=== PATIENT | female | born 1940 | race Caucasian/White ===

== ENCOUNTER 2023-04-12 12:39 | Inpatient (IN) | payer OTHER ==
[2023-04-12] MEDS ORDERED: VANCOMYCIN 1,000 MG in DEXTROSE 5%-WATER - 250 ML IVPB ONE (12:57)
[2023-04-12] MEDS ORDERED: PIPERACILLIN/TAZOB 4.5 GM 4.5 GM in DEXTROSE 5%-WATER 100 ML IVPB ONE (12:58)
[2023-04-12] MEDS ORDERED: SODIUM CHLORIDE 1,000 ML IV STA (13:00)
[2023-04-12] MEDS ORDERED: PIPERACILLIN/TAZOB 4.5 GM 4.5 GM/100 ML BAG IVPB ONE (13:12)
[2023-04-12] MEDS ORDERED: VANCOMYCIN 1 GRAM (PRE-DOCKED) 1,000 MG/250 ML BAG IVPB ONE ×2 (13:13→14:09)
[2023-04-12 13:29] VITALS: BMI 22.1
[2023-04-12 13:53] LABS: VENOUS O2 SATURATION 90.1 % (70-80); VENOUS PCO2 47.5 mmHg (38-52); VENOUS PH 7.355 (7.310-7.410)
[2023-04-12 14:05] LABS: BASO % 0.4 % (0-2.0); EOS % 0.1 % (0-4.5); HEMATOCRIT 35.5 % (32.4-45.2); HEMOGLOBIN 11.4 GM/dL (10.7-15.3); LYMPH % 8.3 % (8-40); MCH 30.7 pg (25.7-33.7); MCHC 32.2 g/dl (32.0-36.0); MEAN CELL VOLUME 95.5 fl (80-96); MEAN PLT VOLUME 8.4 fl (7.5-11.1); MONO % 8.9 % (3.8-10.2); NEUT % 82.3 % (42.8-82.8); PLATELET COUNT 420 10^3/uL (134-434); RBC 3.72 M/mm3 (3.60-5.2); RDW 16.3 % (11.6-15.6); WHITE BLOOD COUNT 11.7 K/mm3 (4.0-10.0)
[2023-04-12 14:10] LABS: EPI CELLS 7 /uL (0-25.1); HYALINE CASTS 3 /uL (0-3.1); URINE APPEARANCE CLOUDY; URINE BACTERIA >9,000 /uL (0-1359); URINE BILIRUBIN NEGATIVE (NEGATIVE); URINE COLOR DK YELLOW; URINE GLUCOSE (UA) NEGATIVE (NEGATIVE); URINE KETONE TRACE (NEGATIVE); URINE LEUK ESTERASE 2+ (NEGATIVE); URINE NITRITE NEGATIVE (NEGATIVE); URINE PROTEIN 2+ (NEGATIVE); URINE UROBILINOGEN 0.2 mg/dL (0.2-1.0); URINE WBC 352 /uL (0-25.8)
[2023-04-12 14:14] LABS: INR 1.07 (0.83-1.09); PROTHROMBIN TIME (PATIENT) 12.4 SEC (9.7-13.0)
[2023-04-12 14:15] LABS: CHLORIDE 110 mmol/L (98-107); SODIUM 141 mmol/L (136-145)
[2023-04-12 14:16] LABS: ACTIVATED PTT 25.9 SECONDS (25.2-36.5)
[2023-04-12 14:17] LABS: ALBUMIN 2.2 g/dl (3.4-5.0); CO2 24 mmol/L (21-32); GLUCOSE,RANDOM 155 mg/dL (74-106)
[2023-04-12 14:19] LABS: PHOSPHOROUS 3.3 mg/dL (2.5-4.9)
[2023-04-12 14:20] LABS: SGOT/AST 115 U/L (15-37); SGPT/ALT 118 U/L (13-61)
[2023-04-12 14:22] LABS: BILIRUBIN,TOTAL 0.5 mg/dL (0.2-1); TOT PROT 6.6 g/dl (6.4-8.2)
[2023-04-12 14:23] LABS: ALK PHOS 287 U/L (45-117); MAGNESIUM 6.2 mg/dL (1.8-2.4)
[2023-04-12 14:24] LABS: ANION GAP 7 mmol/L (4-13); BLOOD UREA NITROGEN 157.6 mg/dL (7-18); CALCIUM 9.7 mg/dL (8.5-10.1); CREATININE 4.9 mg/dL (0.55-1.3); POTASSIUM 8.1 mmol/L (3.5-5.1)
[2023-04-12 14:29] LABS: URINE RBC 194 /uL (0-23.9); YEAST NONE SEEN (NEGATIVE)
[2023-04-12] MEDS ORDERED: DEXTROSE 5%-0.45% SALINE 1,000 ML IV SCH (15:30)
[2023-04-12 15:34] LABS: CHLORIDE 112 mmol/L (98-107); SODIUM 141 mmol/L (136-145)
[2023-04-12 15:36] LABS: CALCIUM 8.4 mg/dL (8.5-10.1); CO2 23 mmol/L (21-32)
[2023-04-12 15:37] LABS: ALBUMIN 1.8 g/dl (3.4-5.0); GLUCOSE,RANDOM 207 mg/dL (74-106)
[2023-04-12 15:39] LABS: SGPT/ALT 102 U/L (13-61)
[2023-04-12 15:40] LABS: CREATININE 4.7 mg/dL (0.55-1.3); SGOT/AST 116 U/L (15-37)
[2023-04-12 15:41] LABS: BILIRUBIN,TOTAL 0.6 mg/dL (0.2-1); TOT PROT 5.8 g/dl (6.4-8.2)
[2023-04-12 15:46] LABS: ALK PHOS 247 U/L (45-117); ANION GAP 6 mmol/L (4-13); BLOOD UREA NITROGEN 147.5 mg/dL (7-18); POTASSIUM 7.7 mmol/L (3.5-5.1)
[2023-04-12] MEDS: DEXTROSE 5%-0.45% SALINE 1,000 ML IV SCH (15:59)
[2023-04-12 17:31] LABS: CHLORIDE 113 mmol/L (98-107); SODIUM 143 mmol/L (136-145)
[2023-04-12 17:34] LABS: CALCIUM 9.2 mg/dL (8.5-10.1); CO2 23 mmol/L (21-32); GLUCOSE,RANDOM 234 mg/dL (74-106)
[2023-04-12 17:37] LABS: CREATININE 4.9 mg/dL (0.55-1.3); SGOT/AST 113 U/L (15-37); SGPT/ALT 108 U/L (13-61)
[2023-04-12 17:39] LABS: BILIRUBIN,TOTAL 0.5 mg/dL (0.2-1)
[2023-04-12 17:40] LABS: ALK PHOS 261 U/L (45-117); ANION GAP 8 mmol/L (4-13); BLOOD UREA NITROGEN 155.7 mg/dL (7-18); POTASSIUM 7.1 mmol/L (3.5-5.1)
[2023-04-12] MEDS ORDERED: DEXTROSE 50%-WATER - 25 GM/50 ML VIAL IVPUSH ONE (17:43)
[2023-04-12] MEDS ORDERED: INSULIN REGULAR HUMAN 100 UNITS/ML *VIAL IVPUSH ONE (17:43)
[2023-04-12] MEDS ORDERED: SODIUM ZIRCONIUM CYCLOSILICATE (LOKELMA) 5 GM PACKET PO ONE (17:43)
[2023-04-12] MEDS ORDERED: CALCIUM GLUCONATE 10% - 1,000 MG/10 ML VIAL IVPUSH ONE (17:43)
[2023-04-12] MEDS ORDERED: ALBUTEROL SO4 0.083% IH SOL 2.5 MG/3 ML VIAL.NEB. NEB ONE ×2 (17:48→18:36)
[2023-04-12] MEDS ORDERED: ACETAMINOPHEN 1000 MG/100 ML BAG IVPB ONE (18:28)
[2023-04-12] MEDS ORDERED: ACETAMINOPHEN INJECTION 100 ML IVPB ONE (18:30)
[2023-04-12] MEDS ORDERED: CALCIUM GLUCONATE 10% - 1,000 MG/10 ML VIAL ONE (18:36)
[2023-04-12] MEDS ORDERED: DEXTROSE 50%-WATER 25 GM/50 ML DISP.SYRIN ONE (18:36)
[2023-04-12] MEDS ORDERED: INSULIN (NOVOLOG) ASPART 100 UNITS/ML 10ML VIAL ONE (18:37)
[2023-04-12] MEDS ORDERED: PIPERACILLIN/TAZOB 4.5 GM 4.5 GM in DEXTROSE 5%-WATER 100 ML IVPB SCH (21:00)
[2023-04-13] MEDS: PIPERACILLIN/TAZOB 2.25 GM 2.25 GM in DEXTROSE 5%-WATER - 50 ML IVPB SCH ×4 (00:22→18:14)
[2023-04-13] MEDS: HEPARIN NA (PORCINE) 5,000 UNITS/ML 1ML VIAL SQ SCH ×3 (00:22→22:36)
[2023-04-13 07:32] LABS: BASO % 0.5 % (0-2.0); EOS % 0.6 % (0-4.5); HEMATOCRIT 28.1 % (32.4-45.2); HEMOGLOBIN 8.8 GM/dL (10.7-15.3); LYMPH % 8.6 % (8-40); MCH 30.1 pg (25.7-33.7); MCHC 31.3 g/dl (32.0-36.0); MEAN CELL VOLUME 96.3 fl (80-96); MEAN PLT VOLUME 8.1 fl (7.5-11.1); MONO % 8.9 % (3.8-10.2); NEUT % 81.4 % (42.8-82.8); PLATELET COUNT 299 10^3/uL (134-434); RBC 2.92 M/mm3 (3.60-5.2); RDW 16.2 % (11.6-15.6); WHITE BLOOD COUNT 9.7 K/mm3 (4.0-10.0)
[2023-04-13] MEDS ORDERED: SODIUM CHLORIDE 0.45% 1,000 ML IV SCH (11:30)
[2023-04-13 11:55] LABS: BASO % 0.4 % (0-2.0); EOS % 0.9 % (0-4.5); HEMATOCRIT 28.7 % (32.4-45.2); HEMOGLOBIN 8.7 GM/dL (10.7-15.3); LYMPH % 8.4 % (8-40); MCH 29.6 pg (25.7-33.7); MCHC 30.3 g/dl (32.0-36.0); MEAN CELL VOLUME 97.6 fl (80-96); MONO % 6.2 % (3.8-10.2); NEUT % 84.1 % (42.8-82.8); PLATELET COUNT 273 10^3/uL (134-434); RBC 2.94 M/mm3 (3.60-5.2); WHITE BLOOD COUNT 9.6 K/mm3 (4.0-10.0)
[2023-04-13 12:19] LABS: CHLORIDE 113 mmol/L (98-107); POTASSIUM 5.7 mmol/L (3.5-5.1); SODIUM 144 mmol/L (136-145)
[2023-04-13 12:21] LABS: ANION GAP 10 mmol/L (4-13); CALCIUM 8.1 mg/dL (8.5-10.1); CO2 21 mmol/L (21-32)
[2023-04-13 12:22] LABS: ALBUMIN 1.7 g/dl (3.4-5.0); GLUCOSE,RANDOM 181 mg/dL (74-106)
[2023-04-13 12:25] LABS: CREATININE 4.3 mg/dL (0.55-1.3); SGOT/AST 74 U/L (15-37); SGPT/ALT 80 U/L (13-61)
[2023-04-13 12:26] LABS: BILIRUBIN,TOTAL 0.7 mg/dL (0.2-1); TOT PROT 5.4 g/dl (6.4-8.2)
[2023-04-13 12:27] LABS: ALK PHOS 232 U/L (45-117)
[2023-04-13 12:30] LABS: BLOOD UREA NITROGEN 135.8 mg/dL (7-18)
[2023-04-13] MEDS: INSULIN SLIDING SCALE (NOVOLOG) 1 VIAL SQ SCH ×3 (12:30→23:48)
[2023-04-13 15:03] LABS: ARTERIAL BLD GAS O2 SATURATION 94.7 % (95-98); ARTERIAL BLOOD GAS BASE EXCESS -3.8 mmol/L (-2-2); ARTERIAL BLOOD GAS pH 7.391 (7.350-7.450)
[2023-04-13 15:18] LABS: ALLENS TEST POSITIVE
[2023-04-13] MEDS: DEXTROSE 5%-0.45% SALINE 1,000 ML IV SCH (17:05)
[2023-04-13] MEDS ORDERED: CALCIUM (OYSTER SHELL) 500 MG TABLET (FP) PO SCH (22:00)
[2023-04-14] MEDS: PIPERACILLIN/TAZOB 2.25 GM 2.25 GM in DEXTROSE 5%-WATER - 50 ML IVPB SCH ×2 (01:18→12:34)
[2023-04-14] MEDS: INSULIN SLIDING SCALE (NOVOLOG) 1 VIAL SQ SCH ×4 (06:56→22:18)
[2023-04-14 07:50] LABS: HEMATOCRIT 26.2 % (32.4-45.2); HEMOGLOBIN 8.2 GM/dL (10.7-15.3); MCH 29.9 pg (25.7-33.7); MCHC 31.1 g/dl (32.0-36.0); MEAN PLT VOLUME 8.1 fl (7.5-11.1); PLATELET COUNT 269 10^3/uL (134-434); RBC 2.73 M/mm3 (3.60-5.2); RDW 15.8 % (11.6-15.6)
[2023-04-14 08:32] LABS: CHLORIDE 113 mmol/L (98-107); POTASSIUM 4.7 mmol/L (3.5-5.1); SODIUM 143 mmol/L (136-145)
[2023-04-14 08:36] LABS: ANION GAP 8 mmol/L (4-13); CALCIUM 7.4 mg/dL (8.5-10.1); CO2 22 mmol/L (21-32); GLUCOSE,RANDOM 95 mg/dL (74-106)
[2023-04-14 08:37] LABS: ALBUMIN 1.8 g/dl (3.4-5.0); MAGNESIUM 4.3 mg/dL (1.8-2.4)
[2023-04-14 08:39] LABS: SGOT/AST 113 U/L (15-37); SGPT/ALT 89 U/L (13-61)
[2023-04-14 08:40] LABS: PHOSPHOROUS 3.6 mg/dL (2.5-4.9)
[2023-04-14 08:41] LABS: BILIRUBIN,TOTAL 0.4 mg/dL (0.2-1); TOT PROT 5.5 g/dl (6.4-8.2)
[2023-04-14 08:42] LABS: ALK PHOS 246 U/L (45-117)
[2023-04-14 09:01] LABS: BLOOD UREA NITROGEN 115.8 mg/dL (7-18)
[2023-04-14] MEDS ORDERED: PANTOPRAZOLE 40 MG TABLET PO SCH (10:00)
[2023-04-14] MEDS ORDERED: CYANOCOBALAMIN 1,000 MCG TABLET (FP) PO SCH (10:00)
[2023-04-14] MEDS: DEXTROSE 5%-0.45% SALINE 1,000 ML IV SCH ×3 (12:00→21:32)
[2023-04-14] MEDS: HEPARIN NA (PORCINE) 5,000 UNITS/ML 1ML VIAL SQ SCH ×2 (12:33→21:29)
[2023-04-14] MEDS: PANTOPRAZOLE SODIUM 40 MG VIAL IVPUSH SCH (13:45)
[2023-04-15] MEDS: DEXTROSE 5%-0.45% SALINE 1,000 ML IV SCH (06:21)
[2023-04-15] MEDS: INSULIN SLIDING SCALE (NOVOLOG) 1 VIAL SQ SCH ×4 (06:31→21:36)
[2023-04-15 07:55] LABS: BASO % 0.5 % (0-2.0); EOS % 2.6 % (0-4.5); HEMATOCRIT 26.2 % (32.4-45.2); HEMOGLOBIN 8.2 GM/dL (10.7-15.3); MCH 29.9 pg (25.7-33.7); MCHC 31.5 g/dl (32.0-36.0); MEAN PLT VOLUME 8.1 fl (7.5-11.1); MONO % 5.8 % (3.8-10.2); NEUT % 82.1 % (42.8-82.8); PLATELET COUNT 243 10^3/uL (134-434); RBC 2.76 M/mm3 (3.60-5.2); RDW 15.6 % (11.6-15.6); WHITE BLOOD COUNT 12.3 K/mm3 (4.0-10.0)
[2023-04-15 08:12] LABS: POTASSIUM 3.6 mmol/L (3.5-5.1)
[2023-04-15 08:30] LABS: CALCIUM 7.4 mg/dL (8.5-10.1)
[2023-04-15 08:31] LABS: ALBUMIN 1.8 g/dl (3.4-5.0); MAGNESIUM 3.5 mg/dL (1.8-2.4)
[2023-04-15 08:34] LABS: CREATININE 3.2 mg/dL (0.55-1.3); PHOSPHOROUS 2.7 mg/dL (2.5-4.9)
[2023-04-15 08:35] LABS: BILIRUBIN,TOTAL 0.4 mg/dL (0.2-1); TOT PROT 5.3 g/dl (6.4-8.2)
[2023-04-15 08:36] LABS: BLOOD UREA NITROGEN 89.3 mg/dL (7-18)
[2023-04-15] MEDS: PANTOPRAZOLE SODIUM 40 MG VIAL IVPUSH SCH (09:42)
[2023-04-15] MEDS: HEPARIN NA (PORCINE) 5,000 UNITS/ML 1ML VIAL SQ SCH ×2 (09:42→21:34)
[2023-04-15] MEDS: ERTAPENEM SODIUM 0.5 GM in SODIUM CHLORIDE 50 ML IVPB SCH (09:58)
[2023-04-15] MEDS ORDERED: SODIUM CHLORIDE 0.45% 1,000 ML IV SCH (11:00)
[2023-04-15] MEDS ORDERED: AMINO ACIDS 4.25%/D5W 1,000 ML IV SCH (11:00)
[2023-04-15] MEDS: AMINO ACIDS 4.25%/D5W 1,000 ML IV SCH (11:36)
[2023-04-15] MEDS: VANCOMYCIN ORAL SOLUTION 125 MG/2.5 ML PO SCH (17:30)
[2023-04-15] MEDS: SODIUM CHLORIDE 0.45% 1,000 ML IV SCH (18:37)
[2023-04-15] MEDS ORDERED: INSULIN (NOVOLOG) ASPART 100 UNITS/ML 10ML VIAL ONE (20:48)
[2023-04-16] MEDS: VANCOMYCIN ORAL SOLUTION 125 MG/2.5 ML PO SCH ×5 (00:25→23:52)
[2023-04-16] MEDS: AMINO ACIDS 4.25%/D5W 1,000 ML IV SCH ×2 (00:26→11:45)
[2023-04-16] MEDS ORDERED: ACETAMINOPHEN 1000 MG/100 ML BAG IVPB ONE ×2 (06:00→21:43)
[2023-04-16] MEDS: INSULIN SLIDING SCALE (NOVOLOG) 1 VIAL SQ SCH ×4 (06:31→22:35)
[2023-04-16] MEDS: HEPARIN NA (PORCINE) 5,000 UNITS/ML 1ML VIAL SQ SCH ×2 (09:47→22:35)
[2023-04-16] MEDS: PANTOPRAZOLE SODIUM 40 MG VIAL IVPUSH SCH (09:47)
[2023-04-16] MEDS: ERTAPENEM SODIUM 0.5 GM in SODIUM CHLORIDE 50 ML IVPB SCH (09:48)
[2023-04-16 10:32] LABS: EPI CELLS 13 /uL (0-25.1); HYALINE CASTS 2 /uL (0-3.1); PH,URINE 5.5 (5.0-8.0); URINE APPEARANCE CLOUDY; URINE BACTERIA 4 /uL (0-1359); URINE BILIRUBIN NEGATIVE (NEGATIVE); URINE COLOR YELLOW; URINE GLUCOSE (UA) NEGATIVE (NEGATIVE); URINE KETONE NEGATIVE (NEGATIVE); URINE LEUK ESTERASE TRACE (NEGATIVE); URINE NITRITE NEGATIVE (NEGATIVE); URINE PROTEIN 1+ (NEGATIVE); URINE UROBILINOGEN 0.2 mg/dL (0.2-1.0); URINE WBC 141 /uL (0-25.8)
[2023-04-16 10:51] LABS: URINE RBC 117 /uL (0-23.9)
[2023-04-16 10:52] LABS: YEAST MANY (NEGATIVE)
[2023-04-16] MEDS: SODIUM CHLORIDE 0.45% 1,000 ML IV SCH (10:52)
[2023-04-16 11:22] LABS: HEMATOCRIT 24.4 % (32.4-45.2); HEMOGLOBIN 7.8 GM/dL (10.7-15.3); MCH 30.1 pg (25.7-33.7); MCHC 31.8 g/dl (32.0-36.0); MEAN CELL VOLUME 94.7 fl (80-96); MEAN PLT VOLUME 7.7 fl (7.5-11.1); PLATELET COUNT 253 10^3/uL (134-434); RBC 2.57 M/mm3 (3.60-5.2); RDW 15.2 % (11.6-15.6); WHITE BLOOD COUNT 10.4 K/mm3 (4.0-10.0)
[2023-04-16 12:02] LABS: ALBUMIN 1.7 g/dl (3.4-5.0); ALK PHOS 183 U/L (45-117); ANION GAP 9 mmol/L (4-13); BILIRUBIN,TOTAL 0.3 mg/dL (0.2-1); BLOOD UREA NITROGEN 72.6 mg/dL (7-18); CALCIUM 7.4 mg/dL (8.5-10.1); CHLORIDE 115 mmol/L (98-107); CO2 20 mmol/L (21-32); CREATININE 2.3 mg/dL (0.55-1.3); GLUCOSE,RANDOM 119 mg/dL (74-106); MAGNESIUM 2.7 mg/dL (1.8-2.4); POTASSIUM 2.9 mmol/L (3.5-5.1); SGOT/AST 29 U/L (15-37); SGPT/ALT 43 U/L (13-61); SODIUM 144 mmol/L (136-145); TOT PROT 5.2 g/dl (6.4-8.2)
[2023-04-16] MEDS ORDERED: POTASSIUM CHLORIDE ORAL LIQUID 20 MEQ/15 ML PO ONE (13:18)
[2023-04-16] MEDS: KCL 10 MEQ IVPB 10 MEQ/100 ML INFUS.BAG IVPB SCH ×3 (14:11→17:08)
[2023-04-16] MEDS ORDERED: SODIUM CHLORIDE 0.45% 1,000 ML with POTASSIUM CHLORIDE 40 MEQ IV SCH (18:07)
[2023-04-16] MEDS ORDERED: POTASSIUM CHLORIDE 40 MEQ in SODIUM CHLORIDE 0.45% 1,000 ML IV SCH (19:38)
[2023-04-17] MEDS: AMINO ACIDS 4.25%/D5W 1,000 ML IV SCH ×2 (03:37→13:25)
[2023-04-17] MEDS ORDERED: AMINO ACIDS 4.25%/D5W 1,000 ML IV SCH (04:10)
[2023-04-17] MEDS ORDERED: LACTATED RINGERS SOLUTION 1,000 ML/1,000 ML INFUS.BAG IV ONE (04:11)
[2023-04-17] MEDS ORDERED: POTASSIUM CHLORIDE 40 MEQ in SODIUM CHLORIDE 0.45% 1,000 ML IV SCH (04:12)
[2023-04-17] MEDS: VANCOMYCIN ORAL SOLUTION 125 MG/2.5 ML PO SCH ×3 (05:38→17:34)
[2023-04-17] MEDS: INSULIN SLIDING SCALE (NOVOLOG) 1 VIAL SQ SCH ×4 (06:16→22:00)
[2023-04-17 07:36] LABS: HEMATOCRIT 23.1 % (32.4-45.2); HEMOGLOBIN 7.1 GM/dL (10.7-15.3); MCH 29.3 pg (25.7-33.7); MCHC 30.5 g/dl (32.0-36.0); MEAN CELL VOLUME 95.9 fl (80-96); MEAN PLT VOLUME 7.8 fl (7.5-11.1); PLATELET COUNT 258 10^3/uL (134-434); RBC 2.41 M/mm3 (3.60-5.2); RDW 15.3 % (11.6-15.6); WHITE BLOOD COUNT 13.8 K/mm3 (4.0-10.0)
[2023-04-17 08:04] LABS: POTASSIUM 3.7 mmol/L (3.5-5.1)
[2023-04-17 08:06] LABS: CALCIUM 7.1 mg/dL (8.5-10.1)
[2023-04-17 08:07] LABS: ALBUMIN 1.6 g/dl (3.4-5.0); BLOOD UREA NITROGEN 73.2 mg/dL (7-18)
[2023-04-17 08:10] LABS: CREATININE 2.1 mg/dL (0.55-1.3)
[2023-04-17 08:11] LABS: TOT PROT 4.9 g/dl (6.4-8.2)
[2023-04-17 08:12] LABS: BILIRUBIN,TOTAL 0.2 mg/dL (0.2-1)
[2023-04-17] MEDS: ERTAPENEM SODIUM 0.5 GM in SODIUM CHLORIDE 50 ML IVPB SCH (11:07)
[2023-04-17] MEDS: PANTOPRAZOLE SODIUM 40 MG VIAL IVPUSH SCH (11:07)
[2023-04-17] MEDS: HEPARIN NA (PORCINE) 5,000 UNITS/ML 1ML VIAL SQ SCH (11:07)
[2023-04-17 11:13] LABS: ANISOCYTOSIS 0; HELMET CELLS 0; HOWELL-JOLLY BODIES 0; MACROCYTOSIS 0; OVALOCYTE 0; ROULEAU 0; SICKELED CELLS 0; TARGET CELLS 0; TEAR DROP CELLS 0; TOXIC GRANULATION 0
[2023-04-17] MEDS ORDERED: FUROSEMIDE 40 MG/4 ML INJECTABLE VIAL IVPUSH ONE (12:43)
[2023-04-17] MEDS ORDERED: INSULIN (NOVOLOG) ASPART 100 UNITS/ML 10ML VIAL ONE (18:16)
[2023-04-18] MEDS: VANCOMYCIN ORAL SOLUTION 125 MG/2.5 ML PO SCH ×4 (00:25→19:03)
[2023-04-18] MEDS ORDERED: ACETAMINOPHEN 1000 MG/100 ML BAG IVPB PRN (03:20)
[2023-04-18] MEDS: INSULIN SLIDING SCALE (NOVOLOG) 1 VIAL SQ SCH ×4 (06:17→22:05)
[2023-04-18] MEDS: PANTOPRAZOLE SODIUM 40 MG VIAL IVPUSH SCH (09:48)
[2023-04-18] MEDS: ERTAPENEM SODIUM 0.5 GM in SODIUM CHLORIDE 50 ML IVPB SCH (14:32)
[2023-04-18 16:25] LABS: BASO % 0.3 % (0-2.0); EOS % 2.3 % (0-4.5); HEMATOCRIT 30.6 % (32.4-45.2); HEMOGLOBIN 9.8 GM/dL (10.7-15.3); LYMPH % 5.2 % (8-40); MCH 29.5 pg (25.7-33.7); MCHC 32.1 g/dl (32.0-36.0); MEAN CELL VOLUME 92.1 fl (80-96); MEAN PLT VOLUME 7.9 fl (7.5-11.1); MONO % 4.4 % (3.8-10.2); NEUT % 87.8 % (42.8-82.8); PLATELET COUNT 316 10^3/uL (134-434); RBC 3.32 M/mm3 (3.60-5.2); RDW 15.8 % (11.6-15.6); WHITE BLOOD COUNT 16.9 K/mm3 (4.0-10.0)
[2023-04-18 16:38] LABS: POTASSIUM 3.5 mmol/L (3.5-5.1)
[2023-04-18 16:40] LABS: CALCIUM 7.6 mg/dL (8.5-10.1)
[2023-04-18 16:41] LABS: ALBUMIN 1.9 g/dl (3.4-5.0); BLOOD UREA NITROGEN 65.4 mg/dL (7-18)
[2023-04-18 16:44] LABS: CREATININE 1.9 mg/dL (0.55-1.3); PHOSPHOROUS 2.8 mg/dL (2.5-4.9)
[2023-04-18 16:46] LABS: BILIRUBIN,TOTAL 0.3 mg/dL (0.2-1); TOT PROT 5.5 g/dl (6.4-8.2)
[2023-04-18] MEDS: AMINO ACIDS 4.25%/D5W 1,000 ML IV SCH (18:49)
[2023-04-19] MEDS: VANCOMYCIN ORAL SOLUTION 125 MG/2.5 ML PO SCH ×4 (01:30→17:01)
[2023-04-19 07:16] LABS: HEMATOCRIT 28.6 % (32.4-45.2); HEMOGLOBIN 9.1 GM/dL (10.7-15.3); MCH 29.8 pg (25.7-33.7); MCHC 31.8 g/dl (32.0-36.0); MEAN CELL VOLUME 93.4 fl (80-96); MEAN PLT VOLUME 7.4 fl (7.5-11.1); PLATELET COUNT 359 10^3/uL (134-434); RBC 3.06 M/mm3 (3.60-5.2); RDW 15.6 % (11.6-15.6)
[2023-04-19] MEDS: INSULIN SLIDING SCALE (NOVOLOG) 1 VIAL SQ SCH ×4 (07:27→21:56)
[2023-04-19 07:37] LABS: POTASSIUM 3.5 mmol/L (3.5-5.1)
[2023-04-19 07:45] LABS: ALBUMIN 1.9 g/dl (3.4-5.0); BLOOD UREA NITROGEN 53.8 mg/dL (7-18); CALCIUM 7.9 mg/dL (8.5-10.1)
[2023-04-19 07:48] LABS: CREATININE 1.8 mg/dL (0.55-1.3); PHOSPHOROUS 2.6 mg/dL (2.5-4.9)
[2023-04-19 07:50] LABS: BILIRUBIN,TOTAL 0.7 mg/dL (0.2-1); TOT PROT 5.3 g/dl (6.4-8.2)
[2023-04-19] MEDS: AMINO ACIDS 4.25%/D5W 1,000 ML IV SCH ×2 (09:00→11:48)
[2023-04-19] MEDS: PANTOPRAZOLE SODIUM 40 MG VIAL IVPUSH SCH (09:01)
[2023-04-19] MEDS: ERTAPENEM SODIUM 0.5 GM in SODIUM CHLORIDE 50 ML IVPB SCH (09:01)
[2023-04-19 09:09] LABS: ANISOCYTOSIS 1+; MACROCYTOSIS 0
[2023-04-19] MEDS ORDERED: COLLAGENASE CLOSTRIDIUM HIST. 30 GRAMS TUBE TP SCH (12:45)
[2023-04-19] MEDS ORDERED: ACETAMINOPHEN 1000 MG/100 ML BAG IVPB ONE (13:30)
[2023-04-19] MEDS: SILVER SULFADIAZINE 1% TOP CREAM 400 GM JAR TP SCH (14:01)
[2023-04-20] MEDS: VANCOMYCIN ORAL SOLUTION 125 MG/2.5 ML PO SCH ×4 (00:30→17:51)
[2023-04-20] MEDS: INSULIN SLIDING SCALE (NOVOLOG) 1 VIAL SQ SCH ×4 (06:23→21:47)
[2023-04-20 07:55] LABS: BASO % 0.5 % (0-2.0); HEMATOCRIT 29.8 % (32.4-45.2); HEMOGLOBIN 9.5 GM/dL (10.7-15.3); LYMPH % 7.6 % (8-40); MEAN CELL VOLUME 93.7 fl (80-96); MEAN PLT VOLUME 7.4 fl (7.5-11.1); MONO % 6.8 % (3.8-10.2); NEUT % 81.1 % (42.8-82.8); PLATELET COUNT 419 10^3/uL (134-434); RBC 3.19 M/mm3 (3.60-5.2); RDW 15.9 % (11.6-15.6); WHITE BLOOD COUNT 14.9 K/mm3 (4.0-10.0)
[2023-04-20 08:26] LABS: POTASSIUM 3.1 mmol/L (3.5-5.1)
[2023-04-20 08:35] LABS: BLOOD UREA NITROGEN 40.9 mg/dL (7-18); CALCIUM 7.7 mg/dL (8.5-10.1); MAGNESIUM 1.8 mg/dL (1.8-2.4)
[2023-04-20 08:36] LABS: CREATININE 1.5 mg/dL (0.55-1.3)
[2023-04-20 08:38] LABS: BILIRUBIN,TOTAL 0.3 mg/dL (0.2-1); PHOSPHOROUS 2.1 mg/dL (2.5-4.9); TOT PROT 5.7 g/dl (6.4-8.2)
[2023-04-20] MEDS ORDERED: POTASSIUM CHLORIDE ORAL LIQUID 20 MEQ/15 ML PO ONE (09:57)
[2023-04-20] MEDS ORDERED: NAPH,MB-DB/K PH,MBDB POWDER PACKET PO SCH (10:00)
[2023-04-20] MEDS: PANTOPRAZOLE SODIUM 40 MG VIAL IVPUSH SCH (10:25)
[2023-04-20] MEDS: SILVER SULFADIAZINE 1% TOP CREAM 400 GM JAR TP SCH (10:25)
[2023-04-20] MEDS ORDERED: AMINO ACIDS 4.25%/D5W 1,000 ML IV SCH (11:19)
[2023-04-20] MEDS: ERTAPENEM SODIUM 0.5 GM in SODIUM CHLORIDE 50 ML IVPB SCH (12:09)
[2023-04-20] MEDS: POTASSIUM CHLORIDE IVPB SCH (13:36)
[2023-04-20] MEDS: [UNRECOGNIZED DRUG - OTHER] IVPB SCH (13:36)
[2023-04-20] MEDS: AMINO ACIDS IVPB SCH (13:36)
[2023-04-20] MEDS: POTASSIUM PHOSPHATE IVPB SCH (13:36)
[2023-04-20] MEDS: THIAMINE HCL 200 MG/2 ML VIAL IVPB SCH (17:42)
[2023-04-21] MEDS: VANCOMYCIN ORAL SOLUTION 125 MG/2.5 ML PO SCH ×4 (00:31→17:54)
[2023-04-21] MEDS: AMINO ACIDS IVPB SCH (05:13)
[2023-04-21] MEDS: [UNRECOGNIZED DRUG - OTHER] IVPB SCH (05:13)
[2023-04-21] MEDS: POTASSIUM CHLORIDE IVPB SCH (05:13)
[2023-04-21] MEDS: POTASSIUM PHOSPHATE IVPB SCH (05:13)
[2023-04-21] MEDS ORDERED: ACETAMINOPHEN 1000 MG/100 ML BAG IVPB ONE (05:16)
[2023-04-21] MEDS: INSULIN SLIDING SCALE (NOVOLOG) 1 VIAL SQ SCH ×4 (06:19→22:02)
[2023-04-21 07:10] LABS: POTASSIUM 3.3 mmol/L (3.5-5.1)
[2023-04-21 07:15] LABS: CALCIUM 7.7 mg/dL (8.5-10.1)
[2023-04-21 07:16] LABS: BLOOD UREA NITROGEN 34.6 mg/dL (7-18); MAGNESIUM 1.5 mg/dL (1.8-2.4)
[2023-04-21 07:17] LABS: PHOSPHOROUS 3.6 mg/dL (2.5-4.9)
[2023-04-21 07:19] LABS: BILIRUBIN,TOTAL 0.3 mg/dL (0.2-1); CREATININE 1.2 mg/dL (0.55-1.3); TOT PROT 5.7 g/dl (6.4-8.2)
[2023-04-21 08:44] LABS: HEMATOCRIT 28.4 % (32.4-45.2); HEMOGLOBIN 9.2 GM/dL (10.7-15.3); MCH 29.8 pg (25.7-33.7); MCHC 32.3 g/dl (32.0-36.0); MEAN CELL VOLUME 92.2 fl (80-96); MEAN PLT VOLUME 7.6 fl (7.5-11.1); PLATELET COUNT 400 10^3/uL (134-434); RBC 3.08 M/mm3 (3.60-5.2); RDW 15.5 % (11.6-15.6); WHITE BLOOD COUNT 16.2 K/mm3 (4.0-10.0)
[2023-04-21 09:31] LABS: ANISOCYTOSIS 1+; MACROCYTOSIS 0
[2023-04-21] MEDS: PANTOPRAZOLE SODIUM 40 MG VIAL IVPUSH SCH (09:53)
[2023-04-21] MEDS: SILVER SULFADIAZINE 1% TOP CREAM 400 GM JAR TP SCH (09:53)
[2023-04-21] MEDS: THIAMINE HCL 200 MG/2 ML VIAL IVPB SCH (09:53)
[2023-04-21] MEDS ORDERED: POTASSIUM CHLORIDE 30 MEQ in AMINO ACIDS 4.25%/D5W 1,000 ML IVPB SCH (10:15)
[2023-04-21] MEDS ORDERED: MAGNESIUM SULFATE IN WATER 2 GM/50 ML IVPB IVPB ONE (15:16)
[2023-04-21] MEDS: COLLAGENASE CLOSTRIDIUM HIST. 30 GRAMS TUBE TP SCH (17:52)
[2023-04-21 19:02] VITALS: RESP 20
[2023-04-21] MEDS: AMINO ACIDS 4.25%/D5W 1,000 ML IV SCH (20:46)
[2023-04-22] MEDS: VANCOMYCIN ORAL SOLUTION 125 MG/2.5 ML PO SCH ×3 (00:07→12:48)
[2023-04-22] MEDS: INSULIN SLIDING SCALE (NOVOLOG) 1 VIAL SQ SCH ×3 (06:28→17:16)
[2023-04-22 06:42] LABS: POTASSIUM 3.8 mmol/L (3.5-5.1)
[2023-04-22 06:45] LABS: BLOOD UREA NITROGEN 34.4 mg/dL (7-18); MAGNESIUM 2.1 mg/dL (1.8-2.4)
[2023-04-22 06:48] LABS: CREATININE 1.2 mg/dL (0.55-1.3)
[2023-04-22 06:49] LABS: BASO % 0.8 % (0-2.0); EOS % 1.4 % (0-4.5); LYMPH % 5.4 % (8-40); MCH 30.9 pg (25.7-33.7); MCHC 33.5 g/dl (32.0-36.0); MEAN CELL VOLUME 92.4 fl (80-96); MEAN PLT VOLUME 6.9 fl (7.5-11.1); MONO % 7.1 % (3.8-10.2); NEUT % 85.3 % (42.8-82.8); PHOSPHOROUS 2.8 mg/dL (2.5-4.9); PLATELET COUNT 455 10^3/uL (134-434); RBC 2.92 M/mm3 (3.60-5.2); RDW 15.7 % (11.6-15.6); WHITE BLOOD COUNT 17.2 K/mm3 (4.0-10.0)
[2023-04-22 06:50] LABS: BILIRUBIN,TOTAL 0.4 mg/dL (0.2-1); TOT PROT 5.8 g/dl (6.4-8.2)
[2023-04-22 06:56] LABS: CALCIUM 7.6 mg/dL (8.5-10.1)
[2023-04-22] MEDS ORDERED: ACETAMINOPHEN 325 MG TABLET (FP) PO PRN (06:59)
[2023-04-22] MEDS ORDERED: AMINO ACIDS 4.25%/D5W 1,000 ML IV SCH ×2 (10:00→12:05)
[2023-04-22] MEDS: THIAMINE HCL 200 MG/2 ML VIAL IVPB SCH (10:30)
[2023-04-22] MEDS: PANTOPRAZOLE SODIUM 40 MG VIAL IVPUSH SCH (10:30)
[2023-04-22] MEDS: COLLAGENASE CLOSTRIDIUM HIST. 30 GRAMS TUBE TP SCH (11:55)
[2023-04-22] MEDS: SILVER SULFADIAZINE 1% TOP CREAM 400 GM JAR TP SCH (11:55)
[2023-04-22] MEDS ORDERED: ACETAMINOPHEN 1000 MG/100 ML BAG IVPB PRN (12:55)
[2023-04-22 15:41] VITALS: BP 117/52; PULSE 95; TEMP 98
== END 2023-04-22 17:52 | disposition hospice, inpatient (51) | DRG 871 ==
LOC: JER 12:39 → JERBED 14:41 → J4W 20:48
PROVIDERS: ADMIT Internal Medicine; ATTEND Internal Medicine
PROC: 30233N1 Transfusion of Nonautologous Red Blood Cells into Peripheral Vein, Percutaneous Approach (ICD-10-PCS; principal; 2023-04-17)
DX: A41.9 Sepsis, unspecified organism (principal); G92.8 Other toxic encephalopathy; J18.9 Pneumonia, unspecified organism; J96.01 Acute respiratory failure with hypoxia; N17.9 Acute kidney failure, unspecified; N39.0 Urinary tract infection, site not specified; J90 Pleural effusion, not elsewhere classified; R64 Cachexia; N13.30 Unspecified hydronephrosis; F02.83 Dementia in other diseases classified elsewhere, unspecified severity, with mood disturbance; A04.72 Enterocolitis due to Clostridium difficile, not specified as recurrent; E46 Unspecified protein-calorie malnutrition; E87.0 Hyperosmolality and hypernatremia; Z16.12 Extended spectrum beta lactamase (ESBL) resistance; I10 Essential (primary) hypertension; E11.9 Type 2 diabetes mellitus without complications; G30.9 Alzheimer's disease, unspecified; K76.0 Fatty (change of) liver, not elsewhere classified; D64.9 Anemia, unspecified; K21.9 Gastro-esophageal reflux disease without esophagitis; R45.1 Restlessness and agitation; R74.01 Elevation of levels of liver transaminase levels; L89.610 Pressure ulcer of right heel, unstageable; E87.5 Hyperkalemia; L89.152 Pressure ulcer of sacral region, stage 2; E87.6 Hypokalemia; E83.39 Other disorders of phosphorus metabolism; Z68.22 Body mass index [BMI] 22.0-22.9, adult; E86.0 Dehydration
CPT/HCPCS: 0241U-QW; 36415; 36430; 36600; 70450-TC; 71045-TC-FY; 76700-TC; 80053; 81003; 82272; 82553; 82607; 82746; 82803; 82962; 83605; 83735; 84100; 84439; 84443; 84481; 84484; 85025; 85027; 85610; 85730; 86850; 86900; 86901; 86922; 87040; 87086; 87186; 87493; 87635; 93005; 93010; 99291; J1644; P9058